=== PATIENT | female | born 1985 | race Caucasian/White ===

== ENCOUNTER 2017-01-05 10:26 | Emergency (ER) | payer MEDICAID ==
[~2017-01-05] VITALS: Ht 160 cm; Wt 90.0 kg
[2017-01-05 10:27] VITALS: BP 133/79; PULSE 100; RESP 20; TEMP 97.9; O2SAT 94
[2017-01-05] MEDS ORDERED: IBUPROFEN 800 MG TAB PO ONE (11:15)
[2017-01-05] MEDS ORDERED: IBUP800T23 PO (11:16)
[2017-01-05] MEDS ORDERED: CLIN1CAP5 PO (11:16)
--- NOTE | 2017-01-05 11:22 | PD ---
HPI Chief Complaint: Skin Problem Time Seen by Provider: 11:08 Travel History International Travel<30 days: No Contact w/Intl Traveler<30days: No Traveled to known affect area: No History of Present Illness HPI 31-year-old female to history of hidrenitis presents for evaluation of left axillary pain. Symptoms started 2-3 days ago. Pain is a throbbing pain which is constant and worse with palpation. She has had no drainage. No fevers or chills. She has had frequent episodes in the past of similar nature. She has no other complaints at this time. [facility] Past Medical History Narrative Medical History of hydradenitis LMP: NOVEMBER 2016 Social History Alcohol Use: Yes Tobacco Use: Yes Allergies-Medications (Allergen,Severity, Reaction): Coded Allergies: No Known Allergies (Unverified , 01/05/17) Reported Meds & Prescriptions Reported Meds & Active Scripts Active Ibuprofen 800 Mg Tab 800 Mg PO QID Clindamycin (Clindamycin HCl) 150 Mg Cap 300 Mg PO TID 10 Days Review of Systems Except as stated in HPI: all other systems reviewed are Neg Physical Exam Narrative GENERAL: Well-developed well-nourished female in no acute distress SKIN: Warm and dry. Multiple scars are noted in the left axillary region. There is an area of cutaneous induration and erythema, no obvious fluctuance. Tender to palpation. HEAD: Atraumatic. Normocephalic. EYES: Pupils equal and round. No scleral icterus. No injection or drainage. ENT: No nasal bleeding or discharge. Mucous membranes pink and moist. NECK: Trachea midline. No JVD. CARDIOVASCULAR: Regular rate and rhythm. No murmur appreciated. RESPIRATORY: No accessory muscle use. Clear to auscultation. Breath sounds equal bilaterally. Data Data Last Documented VS Vital Signs Date Time Temp Pulse Resp B/P Pulse Ox O2 Delivery O2 Flow Rate FiO2 01/05/17 10:27 97.9 100 20 133/79 94 Room Air Orders Ibuprofen (Motrin) (01/05/17 11:15) [facility] Medical Decision Making Medical Screen Exam Complete: Yes Emergency Medical Condition: Yes Medical Record Reviewed: Yes Differential Diagnosis Hydradenitis, cellulitis, abscess, folliculitis Narrative Course 31-year-old female with history of hidradenitis presents with 3 days of pain in the left axilla. Examination reveals an area of erythema and induration of the skin with no obvious fluctuance. The plan initially was to anesthetize the area and perform needle aspiration in an attempt to see if there is any purulent drainage that needed to be expressed over the patient is declining and would prefer antibiotic therapy. She is encouraged to follow up eventually with a surgeon for definitive therapy of this issue. She is stable for discharge. Diagnosis Primary Impression: Hidradenitis suppurativa of left axilla Additional Instructions: Medication as prescribed. Warm compresses to the area several times a day 10 minutes at a time. Follow-up with essentially with a surgeon for definitive therapy. Return for any emergent medical conditions. Med/Other Pt SpecificInfo: Prescription(s) given Scripts Ibuprofen 800 Mg [id number] Mg PO QID #30 TAB Ref 0 Prov:Angelo Osuna MD 01/05/17 Clindamycin 150 Mg [id number] Mg PO TID 10 Days Ref 0 Prov:Angelo Osuna MD 01/05/17 Disposition: 01 DISCHARGE HOME Condition: Stable Henrique Seymour Jan 05, 2017 11:22
== END 2017-01-05 12:06 | disposition home or self-care (01) ==
LOC: NEPB 10:26
DX: L73.2 Hidradenitis suppurativa (principal); Z72.0 Tobacco use
CPT/HCPCS: 99283

== ENCOUNTER 2017-07-22 10:49 | Emergency (ER) | payer MEDICAID ==
[~2017-07-22] VITALS: Ht 160 cm; Wt 110.0 kg
[~2017-07-22 10:49] MED LIST: CLIN1CAP5 PO; IBUP800T23 PO
[2017-07-22 10:51] VITALS: BP 170/86; PULSE 81; RESP 15; TEMP 98.2; O2SAT 99
[2017-07-22 10:59] VITALS: PULSE 98; RESP 20; O2SAT 98
--- NOTE | 2017-07-22 11:08 | PD ---
HPI Chief Complaint: Cold / Flu Symptoms Time Seen by Provider: 11:00 Travel History International Travel<30 days: No Contact w/Intl Traveler<30days: No Traveled to known affect area: No History of Present Illness HPI 31-year-old female complains of sore throat coughing congestion and wheezing body ache. Patient states the symptoms started 5 days ago. Patient states the cough is productive intermittent. Patient denies any chest pain or shortness of breath. Patient has history of asthma however does not have an inhaler with her. Patient denies any fever chills. Patient denies abdominal pain. Patient denies any nausea vomiting. Patient states that she has some mild intermittent diarrhea. Patient denied dysuria or frequency. Patient denies any chance of being . PFS Past Medical History Immune Disorder: Yes (HIV+) Influenza Vaccination: Yes ?: Not LMP: 07/04/17 Tubal Ligation: Yes Social History Alcohol Use: Yes Tobacco Use: Yes (11/21 PPD) Substance Use: No Allergies-Medications (Allergen,Severity, Reaction): Coded Allergies: No Known Allergies (Unverified , 07/22/17) Reported Meds & Prescriptions Reported Meds & Active Scripts Active No Active Prescriptions or Reported Medications Review of Systems General / Constitutional: No: Fever Eyes: No: Visual changes HENT: Positive: Sore Throat, No: Headaches Cardiovascular: No: Chest Pain or Discomfort Respiratory: Positive: Cough, Wheezing, No: Shortness of Breath Gastrointestinal: No: Abdominal Pain Genitourinary: No: Dysuria Musculoskeletal: No: Pain Skin: No Rash Neurologic: No: Weakness Psychiatric: No: Depression Endocrine: No: Polydipsia Hematologic/Lymphatic: No: Easy Bruising Physical Exam Narrative GENERAL: Well-nourished, well-developed patient. SKIN: Focused skin assessment warm/dry. HEAD: Normocephalic. EYES: No scleral icterus. No injection or drainage. Throat: Nonerythematous. NECK: Supple, trachea midline. No JVD or lymphadenopathy. No meningismus CARDIOVASCULAR: Regular rate and rhythm without murmurs, gallops, or rubs. RESPIRATORY: Breath sounds equal bilaterally. No accessory muscle use. Patient has mild expiratory wheezes bilaterally. No rhonchi. GASTROINTESTINAL: Abdomen soft, non-tender, nondistended. MUSCULOSKELETAL: No cyanosis, or edema. BACK: Nontender without obvious deformity. No CVA tenderness. Neurologic exam normal. Data Data Last Documented VS Vital Signs Date Time Temp Pulse Resp B/P (MAP) Pulse Ox O2 Delivery O2 Flow Rate FiO2 07/22/17 11:02 98 16 98 Room Air 07/22/17 10:59 07/22/17 10:51 98.2 Orders Orders Influenzae A/B Antigen (07/22/17 11:03) Chest, Single Ap (07/22/17 11:03) Albuterol-Ipratropium Neb (Duoneb Neb) (07/22/17 11:15) MDM Medical Decision Making Medical Screen Exam Complete: Yes Emergency Medical Condition: Yes Interpretation(s) 12:04 PM. Chest x-ray shows no acute consolidation. Influenza A B antigen negative. Differential Diagnosis Differential diagnosis including acute exacerbation of asthma, URI, bronchitis, pneumonia. Narrative Course 31-year-old female with sore throat coughing congestion wheezing. History of asthma. Albuterol with Atrovent unit dose treatment 1. Diagnosis Primary Impression: Bronchitis Additional Impression: Acute asthma exacerbation Qualified Codes: J45.21 - Mild intermittent asthma with (acute) exacerbation Patient Instructions: General Instructions Additional Instructions: Use inhaler as needed for wheezing. Z-Hernesto as directed. Follow-up with personal physician. Return if worse. Med/Other Pt SpecificInfo: Prescription(s) given Scripts Albuterol 8.5 GM Inh (Proair Hfa 8.5 GM Inh) 90 Mcg/Act Aer 2 PUFF INH Q4-6H Y for SHORTNESS OF BREATH, #1 INHALER 0 Refills 108 mcg/actuation Prov: Angelo Osuna MD 07/22/17 Azithromycin (Zithromax Z-Hernesto) 250 Mg Dspk 250 MG PO DIRECTED for Infection, #1 DSPK 0 Refills 500 MG (2 tabs) day 1, then 1 tab days 2-5. Prov: Angelo Osuna MD 07/22/17 Disposition: 01 DISCHARGE HOME Condition: Stable Angelo Osuna MD Jul 22, 2017 11:08
[2017-07-22] MEDS ORDERED: RESP: ALBUTEROL 2.5 MG/IPRATROPIUM 0.5 MG NEB (SCH) INH ONE (11:15)
--- NOTE | 2017-07-22 11:45 | RADRPT ---
EXAM DATE/TIME: 07/22/2017 11:38 [facility] COMPARISON: No previous studies available for comparison. INDICATIONS : Coughing, wheezing, dizziness and lightheaded. MEDICAL HISTORY : Asthma. SURGICAL HISTORY : None. ENCOUNTER: Initial ACUITY: 4 - 6 days PAIN SCORE: 0/10 LOCATION: Bilateral chest FINDINGS: A single view of the chest demonstrates the lungs to be symmetrically aerated without evidence of mas s, infiltrate or effusion. The cardiomediastinal contours are unremarkable. Osseous structures are intact. CONCLUSION: Normal examination. Jerrell Hayes MD on July 22, 2017 at 11:43 Board Certified Radiologist. This report was verified electronically.
[2017-07-22] MEDS ORDERED: ZITHTAB PO (12:10)
[2017-07-22] MEDS ORDERED: ALBUAER3 INH (12:10)
== END 2017-07-22 12:20 | disposition home or self-care (01) ==
LOC: NEPD 10:49
DX: J45.21 Mild intermittent asthma with (acute) exacerbation (principal); F17.200 Nicotine dependence, unspecified, uncomplicated
CPT/HCPCS: 71010; 87804; 94664; 99284

== ENCOUNTER 2018-01-13 08:48 | Emergency (ER) | payer MEDICAID ==
[~2018-01-13] VITALS: Ht 160 cm; Wt 108.8 kg
[~2018-01-13 08:48] MED LIST changes: +ALBUAER3 INH; -CLIN1CAP5 PO; -IBUP800T23 PO; +ZITHTAB PO
[2018-01-13 08:52] VITALS: BP 131/79; PULSE 16; RESP 18; TEMP 98.1; O2SAT 97
[2018-01-13] MEDS ORDERED: CLIN300C5 PO (10:19)
[2018-01-13] MEDS ORDERED: DIFL150T PO (10:19)
--- NOTE | 2018-01-13 10:20 | PD ---
HPI Chief Complaint: Skin Problem Time Seen by Provider: 09:51 Travel History International Travel<30 days: No Contact w/Intl Traveler<30days: No Traveled to known affect area: No History of Present Illness HPI 32-year-old female here with abscess to the right axilla times for 5 days. The area spontaneously drained today. She still has tenderness in the area prompting her visit. Patient has history of hidradenitis suppurativa and has had numerous abscesses to bilateral axilla. She denies fever or chills. She reports the area spontaneously draining on its own. She is refusing incision and drainage. She is requesting antibiotics. Symptom severity is moderate. Aggravated by palpation of the area. No alleviating factors. PFSH Past Medical History Immune Disorder: Yes (HIV+) Tetanus Vaccination: > 5 Years Influenza Vaccination: No ?: Not LMP: 12/21/17 Tubal Ligation: Yes Past Surgical History Section: Yes Social History Alcohol Use: No Tobacco Use: Yes (11/21 PPD) Substance Use: No Allergies-Medications (Allergen,Severity, Reaction): Coded Allergies: No Known Allergies (Unverified Adverse Reaction, Unknown, 01/13/18) Reported Meds & Prescriptions Reported Meds & Active Scripts Active No Active Prescriptions or Reported Medications Review of Systems Except as stated in HPI: all other systems reviewed are Neg General / Constitutional: No: Fever Physical Exam Narrative GENERAL: Alert and well-appearing 32-year-old female SKIN: Warm and dry. + Tenderness and induration to the right axilla with multiple scars from previous abscesses. There is a small amount of purulent drainage draining from the area of induration. No surrounding cellulitis or lymphangitis. HEAD: Normocephalic. EYES: No injection or drainage. NECK: Supple. CARDIOVASCULAR: Regular rate and rhythm RESPIRATORY: Breath sounds equal bilaterally. No accessory muscle use. MUSCULOSKELETAL: No cyanosis, or edema. Data Data Last Documented VS Vital Signs Date Time Temp Pulse Resp B/P (MAP) Pulse Ox O2 Delivery O2 Flow Rate FiO2 01/13/18 08:52 98.1 16 18 131/79 (96) 97 MDM Medical Decision Making Medical Screen Exam Complete: Yes Emergency Medical Condition: Yes Differential Diagnosis hidradenitis suppurativa, Abscess, Cellulitis Narrative Course This is a 32-year-old female with hidradenitis suppurativa here with a draining abscess to her right axilla. Patient refused incision and drainage. Although the abscess was draining I believe he needed to be opened further for complete drainage. Patient refuses. We discussed risk. She verbalizes understanding and would like to try antibiotics and warm compresses first. She is also requesting Diflucan as she frequently gets infections with antibiotic use. Patient is nontoxic-appearing. Should be treated with antibiotics. Diagnosis Primary Impression: Hidradenitis suppurativa Referrals: Primary Care Physician Additional Instructions: Antibiotics as directed. Diflucan as directed for vaginal yeast infection. Follow with her primary doctor Scripts Fluconazole (Diflucan) 150 Mg Tab 150 MG PO ONCE for Infection, #1 TAB 0 Refills Prov: Alicia Espino 01/13/18 Clindamycin (Clindamycin) 300 Mg Cap 300 MG PO TID for Infection for 10 Days, CAP 0 Refills Prov: Alicia Espino 01/13/18 Disposition: 01 DISCHARGE HOME Condition: Stable Alicia Espino Jan 13, 2018 10:20
== END 2018-01-13 10:29 | disposition home or self-care (01) ==
LOC: PHED 08:48
DX: L73.2 Hidradenitis suppurativa (principal); B20 Human immunodeficiency virus [HIV] disease; F17.210 Nicotine dependence, cigarettes, uncomplicated
CPT/HCPCS: 99283

== ENCOUNTER 2018-01-16 19:57 | Emergency (ER) | payer MEDICAID ==
[~2018-01-16 19:57] MED LIST changes: -ALBUAER3 INH; +CLIN300C5 PO; +DIFL150T PO; -ZITHTAB PO
[2018-01-16 20:18] VITALS: BP 141/75; PULSE 99; RESP 18; TEMP 98.3; O2SAT 96
[2018-01-16] MEDS ORDERED: PERC5TAB12 PO (21:46)
[2018-01-16] MEDS ORDERED: BACT800T5 PO (21:46)
--- NOTE | 2018-01-16 21:47 | PD ---
HPI Chief Complaint: Skin Problem Time Seen by Provider: 21:35 Travel History International Travel<30 days: No Contact w/Intl Traveler<30days: No Traveled to known affect area: No History of Present Illness HPI The patient is a 32-year-old female that has a long history of hidradenitis suppurativa. She was seen on Monday, 4 days ago and prescribed clindamycin. Her pain pill is ibuprofen. She does not particularly want to be cut on today but wants something stronger for the pain. She states she has been taking her clindamycin correctly for the last 4 days. She denies any fever. Only her right axilla is involved today. She claims a pain of 10/10 and aching in quality. She states she will call for a ride home. PFSH Past Medical History Diminished Hearing: No Immune Disorder: Yes (HIV+) Integumentary: Yes (Hydrodenitis) ?: Not LMP: 11/20/17 Tubal Ligation: Yes Past Surgical History Section: Yes Social History Alcohol Use: No Tobacco Use: Yes (11/21 PPD) Substance Use: No Allergies-Medications (Allergen,Severity, Reaction): Coded Allergies: No Known Allergies (Unverified Adverse Reaction, Unknown, 01/13/18) Reported Meds & Prescriptions Reported Meds & Active Scripts Active Diflucan (Fluconazole) 150 Mg Tab 150 Mg PO ONCE Clindamycin (Clindamycin HCl) 300 Mg Cap 300 Mg PO TID 10 Days Review of Systems Except as stated in HPI: all other systems reviewed are Neg Physical Exam Narrative GENERAL: Well-nourished, obese patient in moderate apparent distress with her hidradenitis of her right axillary discomfort. Her vital signs show pulse of 99 and blood pressure 141/75 but the rest of the vital signs are normal. SKIN: Focused skin assessment warm/dry. The patient has hidradenitis suppurativa on the right axilla. There is an area with redness but with very little fluctuance who is cellulitic area measures about 4 x 3 cm. It is exquisitely tender to the touch. There appears to be some slight drainage. HEAD: Normocephalic. EYES: No scleral icterus. No injection or drainage. NECK: Supple, trachea midline. No JVD or lymphadenopathy. CARDIOVASCULAR: Regular rate and rhythm without murmurs, gallops, or rubs. RESPIRATORY: Breath sounds equal bilaterally. No accessory muscle use. GASTROINTESTINAL: Abdomen soft, non-tender, nondistended. MUSCULOSKELETAL: No cyanosis, or edema. BACK: Nontender without obvious deformity. No CVA tenderness. Data Data Last Documented VS Vital Signs Date Time Temp Pulse Resp B/P (MAP) Pulse Ox O2 Delivery O2 Flow Rate FiO2 01/16/18 20:18 98.3 99 18 141/75 (97) 96 MDM Medical Decision Making Medical Screen Exam Complete: Yes Emergency Medical Condition: Yes Medical Record Reviewed: Yes Differential Diagnosis Cellulitis, hidradenitis suppurativa, abscess formation Narrative Course There is little or no abscess formation evident. Almost no fluctuance is present. The patient does not want incision and drainage anyway, she wants pain medication. She will be given Septra DS to add to her regimen and Percocet 5.0. Diagnosis Primary Impression: Hidradenitis suppurativa of right axilla Additional Impression: Cellulitis of right axilla Additional Instructions: Keep the axilla cool and clean. Wash it several times daily gently. Follow-up with a primary care physician or the wound clinic next week. Med/Other Pt SpecificInfo: Prescription(s) given Scripts Oxycodone-Acetaminophen (Percocet) 5-325 mg Tab 1-2 TAB PO Q6H Y for PAIN, #30 TAB 0 Refills Prov: Alvaro Weaver MD 01/16/18 Sulfamethoxazole-Trimethoprim (Bactrim DS) 800-160 Mg Tab 1 TAB PO BID for Infection, #20 TAB 0 Refills Prov: Alvaro Weaver MD 01/16/18 Disposition: 01 DISCHARGE HOME Condition: Stable Alvaro Weaver MD Jan 16, 2018 21:47
[2018-01-16] MEDS ORDERED: SULFAMETHOXAZOLE-TRIMETHOPRIM DS 800-160 MG TAB PO ONE (22:00)
[2018-01-16] MEDS ORDERED: oxyCODONE/ACETAMINOPHEN 7.5 MG/325 MG TAB PO ONE (22:00)
== END 2018-01-16 22:24 | disposition home or self-care (01) ==
LOC: PHEFT 19:57
DX: L73.2 Hidradenitis suppurativa (principal); L03.111 Cellulitis of right axilla; F17.210 Nicotine dependence, cigarettes, uncomplicated; Z21 Asymptomatic human immunodeficiency virus [HIV] infection status
CPT/HCPCS: 99283

== ENCOUNTER 2018-02-24 18:28 | Emergency (ER) | payer MEDICAID ==
[~2018-02-24] VITALS: Ht 160 cm; Wt 108.0 kg
[~2018-02-24 18:28] MED LIST changes: +BACT800T5 PO; +PERC5TAB12 PO
[2018-02-24 18:31] VITALS: BP 136/79; PULSE 103; RESP 16; TEMP 98.1; O2SAT 96
--- NOTE | 2018-02-24 19:09 | PD ---
HPI Chief Complaint: Cold / Flu Symptoms Time Seen by Provider: 18:58 Travel History International Travel<30 days: No Contact w/Intl Traveler<30days: No Traveled to known affect area: No History of Present Illness HPI Patient is a 32-year-old female with a history of HIV who does not take antiretrovirals because "they make her sick" and she states she has not taken them in 11 years. Patient presents emergency department for cough congestion in the setting of cigarette smoking. He states symptoms went on for the past week, constant, not associate with any fever, associated with green sputum production. States symptoms are moderate, for the past week, context and associated signs and symptoms as above PFSH Past Medical History Diminished Hearing: No Immune Disorder: Yes (HIV+) Integumentary: Yes (Hydrodenitis) ?: Not Tubal Ligation: Yes Past Surgical History Section: Yes Social History Alcohol Use: No Tobacco Use: Yes (/2 PPD) Substance Use: No Allergies-Medications (Allergen,Severity, Reaction): Coded Allergies: No Known Allergies (Unverified Adverse Reaction, Unknown, 02/24/18) Reported Meds & Prescriptions Reported Meds & Active Scripts Active Proair Hfa 8.5 GM Inh (Albuterol Sulfate) 90 Mcg/Act Aer 2 Puff INH Q4-6H PRN 108 mcg/actuation Prednisone 20 Mg Tab 60 Mg PO DAILY 5 Days Azithromycin 250 Mg Tab 250 Mg PO DIRECTED Take 2 tabs (500 mg) on day 1 then 1 tab daily x 4 days. Review of Systems Except as stated in HPI: all other systems reviewed are Neg Physical Exam Narrative GENERAL: Well-developed well-nourished, no obvious distress SKIN: Focused skin assessment warm/dry. HEAD: Atraumatic. Normocephalic. EYES: Pupils equal and round. No scleral icterus. No injection or drainage. ENT: No nasal bleeding or discharge. Mucous membranes pink and moist. TMs clear bilaterally, oropharynx clear moist NECK: Trachea midline. No JVD. CARDIOVASCULAR: Regular rate and rhythm. No murmur appreciated. RESPIRATORY: No accessory muscle use. Clear on inspiration, patient has coarse breath sounds on expiration with wheezing and no rales. No tachypnea, no accessory muscle use. Breath sounds equal bilaterally. GASTROINTESTINAL: Abdomen soft, non-tender, nondistended. Hepatic and splenic margins not palpable. MUSCULOSKELETAL: No obvious deformities. No clubbing. No cyanosis. No edema. NEUROLOGICAL: Awake and alert. No obvious cranial nerve deficits. Motor grossly within normal limits. Normal speech. PSYCHIATRIC: Appropriate mood and affect; insight and judgment normal. Data Data Last Documented VS Vital Signs Date Time Temp Pulse Resp B/P (MAP) Pulse Ox O2 Delivery O2 Flow Rate FiO2 02/24/18 19:22 97 02/24/18 18:31 98.1 103 16 136/79 (98) Orders Orders Complete Blood Count With Diff (02/24/18 19:07) Comprehensive Metabolic Panel (02/24/18 19:07) Ecg Monitoring (02/24/18 19:07) Iv Access Insert/Monitor (02/24/18 19:07) Oximetry (02/24/18 19:07) Oxygen Administration (02/24/18 19:07) Sodium Chloride 0.9% Flush (Ns Flush) (02/24/18 19:15) Chest, Pa & Lat (02/24/18 19:07) Albuterol-Ipratropium Neb (Duoneb Neb) (02/24/18 19:15) Prednisone (Deltasone) (02/24/18 19:15) Ed Discharge Order (02/24/18 20:29) Labs Laboratory Tests Test 02/24/18 19:15 White Blood Count 6.0 TH/MM3 Red Blood Count 5.15 MIL/MM3 Hemoglobin 13.1 GM/DL Hematocrit 40.3 % Mean Corpuscular Volume 78.2 FL Mean Corpuscular Hemoglobin 25.5 PG Mean Corpuscular Hemoglobin Concent 32.6 % Red Cell Distribution Width 15.9 % Platelet Count 195 TH/MM3 Mean Platelet Volume 8.4 FL Neutrophils (%) (Auto) 54.4 % Lymphocytes (%) (Auto) 37.0 % Monocytes (%) (Auto) 7.1 % Eosinophils (%) (Auto) 1.2 % Basophils (%) (Auto) 0.3 % Neutrophils # (Auto) 3.3 TH/MM3 Lymphocytes # (Auto) 2.2 TH/MM3 Monocytes # (Auto) 0.4 TH/MM3 Eosinophils # (Auto) 0.1 TH/MM3 Basophils # (Auto) 0.0 TH/MM3 CBC Comment DIFF FINAL Differential Comment Blood Urea Nitrogen 12 MG/DL Creatinine 0.69 MG/DL Random Glucose 87 MG/DL Total Protein 9.2 GM/DL Albumin 3.2 GM/DL Calcium Level 8.8 MG/DL Alkaline Phosphatase 84 U/L Aspartate Amino Transf (AST/SGOT) 29 U/L Alanine Aminotransferase (ALT/SGPT) 26 U/L Total Bilirubin 0.2 MG/DL Sodium Level 135 MEQ/L Potassium Level 4.1 MEQ/L Chloride Level 104 MEQ/L Carbon Dioxide Level 25.6 MEQ/L Anion Gap 5 MEQ/L Estimat Glomerular Filtration Rate 98 ML/MIN [facility] Medical Decision Making Medical Screen Exam Complete: Yes Emergency Medical Condition: Yes Differential Diagnosis PCP, pneumonia, bronchitis, URI, viral illness, HIV status. Narrative Course Patient room to the emergency department, given her HIV status basic labs are indicated and are actually reassuring. Her chest x-ray was clear, sign symptoms consistent with acute viral bronchitis. Will be placed on antibiotics , steroids, she is given a breathing treatment in the emergency department was feeling better. Discussed symptomatic management return to ED criteria. I counseled her briefly on the importance of taking HIV medications. She states the only time that she has never taken them was when she was . She is stable for discharge at this time Diagnosis Primary Impression: Bronchitis Med/Other Pt SpecificInfo: Prescription(s) given Scripts Albuterol 8.5 GM Inh (Proair Hfa 8.5 GM Inh) 90 Mcg/Act Aer 2 PUFF INH Q4-6H Y for SHORTNESS OF BREATH, #1 INHALER 0 Refills 108 mcg/actuation Prov: Wilfrido New MD 02/24/18 Prednisone (Prednisone) 20 Mg Tab 60 MG PO DAILY for 5 Days, #15 TAB 0 Refills Prov: Wilfrido New MD 02/24/18 Azithromycin (Azithromycin) 250 Mg Tab 250 MG PO DIRECTED for Infection, #6 TAB 0 Refills Take 2 tabs (500 mg) on day 1 then 1 tab daily x 4 days. Prov: Wilfrido New MD 02/24/18 Disposition: 01 DISCHARGE HOME Condition: Stable Wilfrido New MD Feb 24, 2018 19:09
[2018-02-24] MEDS ORDERED: RESP: ALBUTEROL 2.5 MG/IPRATROPIUM 0.5 MG NEB (SCH) NEB ONE (19:15)
[2018-02-24] MEDS ORDERED: SODIUM CHLORIDE 0.9% FLUSH 10 ML FLUSH IVF PRN (19:15)
[2018-02-24] MEDS ORDERED: predniSONE 20 MG TAB PO ONE (19:15)
[2018-02-24 19:22] VITALS: O2SAT 97
[2018-02-24 19:23] LABS: AUTOMATED NEUTROPHIL # 3.3 TH/MM3 (1.8-7.7); BASOPHIL % 0.3 % (0.0-2.0); EOSINOPHIL # 0.1 TH/MM3 (0-0.4); EOSINOPHIL % 1.2 % (0.0-4.0); HEMATOCRIT 40.3 % (35.0-46.0); HEMOGLOBIN 13.1 GM/DL (11.6-15.3); LYMPHOCYTE # 2.2 TH/MM3 (1.0-4.8); MEAN CELL VOLUME 78.2 FL (80.0-100.0); MEAN CORPUSCULAR HEMOGLOBIN 25.5 PG (27.0-34.0); MEAN CORPUSCULAR HGB CONC 32.6 % (32.0-36.0); MEAN PLATELET VOLUME 8.4 FL (7.0-11.0); MONO % 7.1 % (0.0-8.0); MONOCYTE # 0.4 TH/MM3 (0-0.9); NEUT % 54.4 % (16.0-70.0); PLATELET COUNT 195 TH/MM3 (150-450); RED BLOOD COUNT 5.15 MIL/MM3 (4.00-5.30); RED CELL DISTRIBUTION WIDTH 15.9 % (11.6-17.2)
[2018-02-24 19:32] LABS: CHLORIDE 104 MEQ/L (98-107); SODIUM (NA) 135 MEQ/L (136-145)
[2018-02-24 19:35] LABS: CALCIUM 8.8 MG/DL (8.5-10.1)
[2018-02-24 19:36] LABS: ALBUMIN 3.2 GM/DL (3.4-5.0); BICARBONATE 25.6 MEQ/L (21.0-32.0); BLOOD UREA NITROGEN 12 MG/DL (7-18); GLUCOSE,RANDOM 87 MG/DL (74-106)
[2018-02-24 19:39] LABS: ALT (GPT) 26 U/L (10-53); AST (GOT) 29 U/L (15-37); CREATININE 0.69 MG/DL (0.50-1.00); GLOMERULAR FILTRATION RATE 98 ML/MIN (>89)
[2018-02-24 19:40] LABS: TOTAL BILIRUBIN ADULT 0.2 MG/DL (0.2-1.0)
[2018-02-24 19:41] LABS: TOTAL PROTEIN 9.2 GM/DL (6.4-8.2)
[2018-02-24 19:42] LABS: ALKALINE PHOSPHATASE 84 U/L (45-117)
[2018-02-24] MEDS ORDERED: ALBUAER3 INH (20:29)
[2018-02-24] MEDS ORDERED: PRED20 PO (20:29)
[2018-02-24] MEDS ORDERED: AZIT250T3 PO (20:29)
--- NOTE | 2018-02-24 20:29 | RADRPT ---
EXAM DATE/TIME: 02/24/2018 19:54 [facility] COMPARISON: No previous studies available for comparison. INDICATIONS : Chest pain due to cough. MEDICAL HISTORY : Asthma SURGICAL HISTORY : None. ENCOUNTER: Initial ACUITY: 2 days PAIN SCORE: 5/10 LOCATION: Bilateral chest FINDINGS: PA and lateral views of the chest demonstrate the lungs to be symmetrically aerated without evidence of mass, infiltrate or effusion. The cardiomediastinal contours are unremarkable. Osseous structure s are intact. CONCLUSION: No acute disease. Rickey Franco MD on February 24, 2018 at 20:26 Board Certified Radiologist. This report was verified electronically.
== END 2018-02-24 20:41 | disposition home or self-care (01) ==
LOC: PHEFT 18:28
DX: J40 Bronchitis, not specified as acute or chronic (principal); F17.210 Nicotine dependence, cigarettes, uncomplicated; Z21 Asymptomatic human immunodeficiency virus [HIV] infection status
CPT/HCPCS: 71046; 80053; 85025; 94664; 99284; J7512

== ENCOUNTER 2018-04-01 21:33 | Emergency (ER) | payer MEDICAID ==
[~2018-04-01] VITALS: Ht 160 cm; Wt 113.5 kg
[~2018-04-01 21:33] MED LIST changes: +ALBUAER3 INH; +AZIT250T3 PO; -BACT800T5 PO; -CLIN300C5 PO; -DIFL150T PO; -PERC5TAB12 PO; +PRED20 PO
[2018-04-01 21:41] VITALS: BP 143/78; PULSE 89; RESP 18; TEMP 97.7; O2SAT 97
--- NOTE | 2018-04-01 22:23 | PD ---
HPI Chief Complaint: Skin Problem Time Seen by Provider: 22:20 Travel History International Travel<30 days: No Contact w/Intl Traveler<30days: No Traveled to known affect area: No History of Present Illness HPI 32-year-old female patient with previous history of hidradenitis and abscesses, HIV, presents to the ER today because she states that she had several days history of pain and swelling in the right axilla and now it is becoming an abscess again. She has had multiple abscesses there that had to be drained. She denies any fevers or any other issues. Modifying Factors: None Associated Signs & Symptoms: Right axillary abscess Risk Factors: Previous hidradenitis and abscesses there PFSH Past Medical History Diminished Hearing: No Immune Disorder: Yes (HIV+) Integumentary: Yes (Hydrodenitis) ?: Unknown LMP: 03/20/18 : 2 Para: 3 Tubal Ligation: Yes Past Surgical History Section: Yes Social History Alcohol Use: No Tobacco Use: Yes (/2 PPD) Substance Use: No Allergies-Medications (Allergen,Severity, Reaction): Coded Allergies: No Known Allergies (Unverified Adverse Reaction, Unknown, 04/01/18) Reported Meds & Prescriptions Reported Meds & Active Scripts Active Proair Hfa 8.5 GM Inh (Albuterol Sulfate) 90 Mcg/Act Aer 2 Puff INH Q4-6H PRN 108 mcg/actuation Prednisone 20 Mg Tab 60 Mg PO DAILY 5 Days Azithromycin 250 Mg Tab 250 Mg PO DIRECTED Take 2 tabs (500 mg) on day 1 then 1 tab daily x 4 days. Review of Systems Except as stated in HPI: all other systems reviewed are Neg Physical Exam Narrative GENERAL: Well-developed young female patient currently in mild distress. Awake and oriented 3. SKIN: Focused skin assessment warm/dry. There is a 5 x 2 cm area of induration , erythema, tenderness and underlying fluctuance at the right axilla. There is a small draining pustule. HEAD: Atraumatic. Normocephalic. EYES: Pupils equal and round. No scleral icterus. No injection or drainage. ENT: No nasal bleeding or discharge. Mucous membranes pink and moist. NECK: Trachea midline. No JVD. Supple. CARDIOVASCULAR: Regular rate and rhythm. No murmur appreciated. RESPIRATORY: No accessory muscle use. Clear to auscultation. Breath sounds equal bilaterally. GASTROINTESTINAL: Abdomen soft, non-tender, nondistended. Hepatic and splenic margins not palpable. MUSCULOSKELETAL: No obvious deformities. No clubbing. No cyanosis. No edema. NEUROLOGICAL: Awake and alert. No obvious cranial nerve deficits. Motor grossly within normal limits. Normal speech. PSYCHIATRIC: Appropriate mood and affect; insight and judgment normal. Data Data Last Documented VS Vital Signs Date Time Temp Pulse Resp B/P (MAP) Pulse Ox O2 Delivery O2 Flow Rate FiO2 04/01/18 21:57 16 04/01/18 21:41 97.7 89 143/78 (99) 97 Orders Orders Lidocaine 2% Inj (Xylocaine 2% Inj) (04/01/18 22:30) Ketorolac Inj (Toradol Inj) (04/01/18 22:30) Wound Culture And Gram Stain (04/01/18 23:17) Ed Discharge Order (04/01/18 23:17) [facility] Medical Decision Making Medical Screen Exam Complete: Yes Emergency Medical Condition: Yes Medical Record Reviewed: Yes Differential Diagnosis Cellulitis versus abscess Narrative Course Area appears to be an abscess and I&D was done. Patient tolerated procedure well. She was also given antibiotics by mouth because she has other areas that look indurated as well and. Wound care instructions were given. Packing removal in 2 days. Return for any signs of worsening in wound infection or any other issues as needed. The plan has been discussed with her and she states understanding. Procedures Procedure Narrative INCISION AND DRAINAGE OF ABSCESS: The area was prepped and was sterilely draped. A subcutaneous wheal of % Xylocaine 2 with a total number 4 mL was used to anesthetize the area. The area was properly anesthetized. A number small scalpel was used to make a 2-cm incision across the area of the abscess. Cultures were obtained. The abscess was drained an irrigated with normal saline. Half inch iodoform packing was placed in the wound. Sterile dressing applied. Patient advised to have packing removed in two days. Diagnosis Primary Impression: Hidradenitis suppurativa of right axilla Med/Other Pt SpecificInfo: Prescription(s) given Scripts Ibuprofen (Ibuprofen) 600 Mg Tab 600 MG PO Q6H Y for Pain/Inflammation, #40 TAB 0 Refills Prov: Anthony Marie MD 04/01/18 Sulfamethoxazole-Trimethoprim (Bactrim DS) 800-160 Mg Tab 1 TAB PO BID for Infection, #14 TAB 0 Refills Prov: Anthony Marie MD 04/01/18 Disposition: 01 DISCHARGE HOME Condition: Stable Anthony Marie MD April 01, 2018 22:23
[2018-04-01] MEDS ORDERED: LIDOCAINE HCL 2% 50 ML VIAL INFIL ONE (22:30)
[2018-04-01] MEDS ORDERED: KETOROLAC TROMETHAMINE 60 MG/2 ML (IM) VIAL IM ONE (22:30)
[2018-04-01] MEDS ORDERED: IBUP-232 PO (23:19)
[2018-04-01] MEDS ORDERED: BACT800T5 PO (23:19)
[2018-04-01 23:46] VITALS: BP 149/88
== END 2018-04-01 23:48 | disposition home or self-care (01) ==
LOC: PHED 21:33
DX: L73.2 Hidradenitis suppurativa (principal); B96.89 Other specified bacterial agents as the cause of diseases classified elsewhere; F17.200 Nicotine dependence, unspecified, uncomplicated; Z21 Asymptomatic human immunodeficiency virus [HIV] infection status
CPT/HCPCS: 10060; 87070; 87185; 87205; 96372; 99283; J1885

== ENCOUNTER 2018-04-03 19:36 | Emergency (ER) | payer MEDICAID ==
[~2018-04-03] VITALS: Ht 160 cm; Wt 116.2 kg
[~2018-04-03 19:36] MED LIST changes: +BACT800T5 PO; +IBUP-232 PO
[2018-04-03 19:40] VITALS: BP 131/72; PULSE 88; RESP 20; TEMP 97.9; O2SAT 97
--- NOTE | 2018-04-03 20:33 | PD ---
HPI Chief Complaint: Wound/Suture/Staple Re-Check Time Seen by Provider: 19:54 Travel History International Travel<30 days: No Contact w/Intl Traveler<30days: No Traveled to known affect area: No History of Present Illness HPI 32-year-old female with a history of hidradenitis suppurativa presents emergency department for a wound check and possible repacking of the right axillary wound. Says that she was here couple of days ago and received Bactrim and states compliance with his medication however she has felt mildly nauseous after taking this medication. She denies fevers or chills. Denies significant pain although states she feels as if the abscess is still present because of the packing. She denies any other complications. PFSH Past Medical History Diminished Hearing: No Immune Disorder: Yes (HIV+) Integumentary: Yes (Hydrodenitis) Tetanus Vaccination: > 5 Years Influenza Vaccination: Yes ?: Not LMP: 03/20/18 : 2 Para: 3 Tubal Ligation: Yes Past Surgical History Section: Yes Social History Alcohol Use: No Tobacco Use: Yes (2 PPD) Substance Use: No Allergies-Medications (Allergen,Severity, Reaction): Coded Allergies: No Known Allergies (Unverified Adverse Reaction, Unknown, 04/03/18) Reported Meds & Prescriptions Reported Meds & Active Scripts Active Bactrim DS (Sulfamethoxazole-Trimethoprim) 800-160 Mg Tab 1 Tab PO BID Zofran Odt (Ondansetron Odt) 4 Mg Tab 4 Mg SL Q8HR PRN 5 Days Ibuprofen 600 Mg Tab 600 Mg PO Q6H PRN Bactrim DS (Sulfamethoxazole-Trimethoprim) 800-160 Mg Tab 1 Tab PO BID Proair Hfa 8.5 GM Inh (Albuterol Sulfate) 90 Mcg/Act Aer 2 Puff INH Q4-6H PRN 108 mcg/actuation Prednisone 20 Mg Tab 60 Mg PO DAILY 5 Days Azithromycin 250 Mg Tab 250 Mg PO DIRECTED Take 2 tabs (500 mg) on day 1 then 1 tab daily x 4 days. Review of Systems Except as stated in HPI: all other systems reviewed are Neg Physical Exam Narrative GENERAL: Well-nourished, well-developed patient. SKIN: Focused skin assessment warm/dry. Right axilla-multiple scars present on the right axilla, consistent with hidradenitis suppurativa. Packing removed. No active exudate from the wound although while assessing the area, there was an area of exudate easily expressed from an adjacent puncta. No surrounding erythema. HEAD: Normocephalic. EYES: No scleral icterus. No injection or drainage. NECK: Supple, trachea midline. No JVD or lymphadenopathy. CARDIOVASCULAR: Regular rate and rhythm without murmurs, gallops, or rubs. RESPIRATORY: Breath sounds equal bilaterally. No accessory muscle use. MUSCULOSKELETAL: No cyanosis, or edema. BACK: Nontender without obvious deformity. No CVA tenderness. Data Data Last Documented VS Vital Signs Date Time Temp Pulse Resp B/P (MAP) Pulse Ox O2 Delivery O2 Flow Rate FiO2 04/03/18 19:40 97.9 88 20 131/72 (91) 97 Orders Orders Ed Discharge Order (04/03/18 20:34) [facility] Medical Decision Making Medical Screen Exam Complete: Yes Emergency Medical Condition: Yes Differential Diagnosis Right axilla wound check, abscess, cellulitis Narrative Course 32-year-old female with a history of hidradenitis suppurativa presents emergency department for a wound check and possible repacking of the right axillary wound. Says that she was here couple of days ago and received Bactrim and states compliance with his medication however she has felt mildly nauseous after taking this medication. She denies fevers or chills. Denies significant pain although states she feels as if the abscess is still present because of the packing. She denies any other complications. Vital signs are stable. Exam findings consistent with hidradenitis [place], wound packing in place. No surrounding erythema. Area of exudate easily expressed. Pack removed. Lightly pack the axilla to keep open and draining. I advised that she should remove the packing in 1-2 days. Wound care advised. Advised to continue Bactrim 7 days after the initial prescription. May continue if draining is persistent. Zofran for nausea as a side effect of Bactrim. Advised to follow-up with her primary care physician within 2-3 days. Monitor for signs of infection. Procedures Procedure Narrative INCISION AND DRAINAGE OF ABSCESS: Half inch iodoform packing was lightly placed in the wound. Sterile dressing applied. Patient is advised to remove the packing in 2 days. Diagnosis Primary Impression: Wound check, abscess Referrals: [facility] Primary Care Physician Additional Instructions: Continue Bactrim for another 3 days. You may stop if your draining and redness stops. Remove the packing in 1-2 days. Wash the area thoroughly to prevent infection. Follow-up with a primary care physician for further treatment and evaluation. Scripts Sulfamethoxazole-Trimethoprim (Bactrim DS) 800-160 Mg Tab 1 TAB PO BID for Infection, #14 TAB 0 Refills Prov: Najma Zhang MD 04/03/18 Ondansetron Odt (Zofran Odt) 4 Mg Tab 4 MG SL Q8HR Y for Nausea/Vomiting for 5 Days, #15 TAB 0 Refills Prov: Najma Zhang MD 04/03/18 Disposition: 01 DISCHARGE HOME Condition: Stable Dede Norwood April 03, 2018 20:33
[2018-04-03] MEDS ORDERED: BACT800T5 PO (20:34)
[2018-04-03] MEDS ORDERED: ZOFR4TAB3 SL (20:34)
== END 2018-04-03 20:45 | disposition home or self-care (01) ==
LOC: PHEFT 19:36
DX: Z48.01 Encounter for change or removal of surgical wound dressing (principal); R11.0 Nausea; T37.0X5A Adverse effect of sulfonamides, initial encounter; L73.2 Hidradenitis suppurativa
CPT/HCPCS: 99281